=== PATIENT | female | born 1940 | race African-American/Black ===

== ENCOUNTER 2021-09-02 20:15 | Emergency (ER) | payer MEDICARE, OTHER ==
[~2021-09-02] VITALS: Ht 157.5 cm; Wt 80.9 kg
[~2021-09-02 20:15] MED LIST: AMLO-257 PO; ATEN-72 PO; METF-1211 PO; RIVA10TA PO
[2021-09-02 20:56] LABS: GLUCOMETER DEV NAME(LOC) ERT.5; GLUCOSE,POINT OF CARE 134 MG/DL (70-110)
[2021-09-02] MEDS ORDERED: SODIUM CHLORIDE 0.9% 1,000 ML IV ONE ×2 (21:45)
[2021-09-02] MEDS ORDERED: ONDANSETRON HCL 4 MG/2 ML VIAL IVP ONE (21:45)
[2021-09-02 22:08] LABS: BASOPHILS % (AUTO) 0.3 % (0.0-2.0); EOSINOPHILS % (AUTO) 0.1 % (1.0-6.0); HEMOGLOBIN 12.3 g/dL (12.0-16.0); LYMPHOCYTES # (AUTO) 0.6 K/uL (1.0-4.8); LYMPHOCYTES % (AUTO) 6.1 % (22.0-44.0); MEAN CORPUSCULAR HEMOGLOBIN 24.5 pg (26.0-34.0); MEAN CORPUSCULAR HGB CONC 31.5 G/dL (31.0-37.0); MEAN CORPUSCULAR VOLUME 78 fL (80-100); MONOCYTES # (AUTO) 0.8 K/uL (0.1-1.0); MONOCYTES % (AUTO) 7.8 % (2.0-9.0); NEUTROPHILS # (AUTO) 8.9 K/uL (1.8-7.7); PLATELET COUNT (AUTO) 220 K/uL (150-450); RED BLOOD CELL COUNT(AUTO) 5.01 MIL/uL (4.00-5.20)
[2021-09-02 22:10] LABS: NEUTROPHILS % (AUTO) 85.7 % (40.0-70.0)
[2021-09-02 22:24] LABS: CALCIUM, TOTAL 9.4 mg/dL (8.8-10.5); CREATININE 1.27 mg/dL (0.60-1.30); POTASSIUM 3.8 mmol/L (3.5-5.1)
[2021-09-02 22:30] LABS: ALBUMIN 3.5 g/dL (3.4-5.0); BILIRUBIN,TOTAL 0.7 mg/dL (0.1-1.0); TOTAL PROTEIN, SERUM 7.9 g/dL (6.4-8.2)
[2021-09-02 22:33] LABS: PLATELET MORPHOLOGY COMMENT LARGE PLTS PRESENT
[2021-09-02 22:40] LABS: LACTIC ACID 1.3 mmol/L (0.4-2.0)
[2021-09-02] MEDS ORDERED: SODIUM CHLORIDE 0.9% 100 ML ONE (23:10)
[2021-09-02] MEDS ORDERED: IOHEXOL 350 MG/ML 100 ML VIAL ONE (23:10)
[2021-09-03 02:27] VITALS: BP 155/77
== END 2021-09-03 03:10 | disposition home or self-care (01) ==
LOC: EMS 20:30
DX: K44.9 Diaphragmatic hernia without obstruction or gangrene (principal); R10.33 Periumbilical pain; I10 Essential (primary) hypertension; E11.9 Type 2 diabetes mellitus without complications; Z88.1 Allergy status to other antibiotic agents; Z88.8 Allergy status to other drugs, medicaments and biological substances; Z79.84 Long term (current) use of oral hypoglycemic drugs; Z79.899 Other long term (current) drug therapy
CPT/HCPCS: 36415; 74177; 80053; 82962; 83605; 83690; 84484; 85025; 93005; 96361; 96374; 99285; J2405; J7030; J7050; Q9967

== ENCOUNTER 2024-08-24 06:40 | Day surgery (SDC) | payer MEDICARE, OTHER ==
[~2024-08-24] VITALS: Ht 157.5 cm; Wt 81.8 kg
[2024-08-24] MEDS ORDERED: SODIUM CHLORIDE 0.9% 0 ML ONE (07:11)
[2024-08-24] MEDS ORDERED: SODIUM CHLORIDE 0.9% 1,000 ML ONE (07:25)
[2024-08-24] MEDS ORDERED: FAMO20 PO (07:50)
[2024-08-24] MEDS ORDERED: APIX2.5T PO (07:50)
[2024-08-24] MEDS ORDERED: AMLO-258 PO (07:50)
[2024-08-24] MEDS ORDERED: IBAN150T21 PO (07:50)
[2024-08-24] MEDS ORDERED: ATOR20TA PO (07:50)
[2024-08-24] MEDS ORDERED: AZEL23SP2 NASAL (07:50)
[2024-08-24 08:21] LABS: GLUCOMETER DEV NAME(LOC) SDS.; GLUCOSE,POINT OF CARE 102 MG/DL (70-110)
[2024-08-24] MEDS ORDERED: FentaNYL CITRATE PF 100 MCG/2 ML VIAL ONE (08:22)
[2024-08-24] MEDS ORDERED: MIDAZOLAM HCL 2 MG/2 ML VIAL ONE (08:22)
[2024-08-24] MEDS: SODIUM CHLORIDE 0.9% 1,000 ML IV ONE (08:49)
[2024-08-24 09:50] VITALS: PULSE 68; RESP 18; O2SAT 99
[2024-08-24] MEDS ORDERED: MethylPREDNISolone SOD SUCC 125 MG/2 ML VIAL ONE (10:19)
[2024-08-24] MEDS: MethylPREDNISolone SOD SUCC 125 MG/2 ML VIAL IVP ONE (10:33)
[2024-08-24] MEDS: PROMETHAZINE HCL/DEXTROMETH 6.25-15MG/5ML SOLUTION ORAL.SYG PO ONE (11:09)
== END 2024-08-24 13:10 | disposition home or self-care (01) ==
LOC: SURGERY 06:40
PROVIDERS: ATTEND Internal Medicine Critical Care Medicine
DX: J38.4 Edema of larynx (principal); B37.0 Candidal stomatitis; E11.9 Type 2 diabetes mellitus without complications; I10 Essential (primary) hypertension; Z79.899 Other long term (current) drug therapy; Z98.890 Other specified postprocedural states; Z90.710 Acquired absence of both cervix and uterus; Z87.01 Personal history of pneumonia (recurrent); Z88.1 Allergy status to other antibiotic agents; Z86.73 Personal history of transient ischemic attack (TIA), and cerebral infarction without residual deficits
CPT/HCPCS: 31623; 82962; 87206; 87101; 87220; 87070; 88108; 31624; 71045; 87015; 93005; J3010; J2250; J2919; J7030